=== PATIENT | male | born 1960 | race Caucasian/White ===

== ENCOUNTER 2025-04-19 13:36 | Emergency (ER) | payer MEDICAID, MEDICARE, SELFPAY ==
--- OUTSIDE RECORDS SUMMARY | 2025-04-12 14:30 | XMS_ITS | Encounter Summary ---
Author Organization [facility] Address [address] [place] [address] Care Team Providers Care Basin Cleaner Name Role Phone Pancho Berrios MD Primary Care Provider Encounter Details Date Type Department Care Team (Late st Contact Info) Description 04/12/2025 2:30 PM CDT Telemedicine [facility] [place] - Primary Care [address] [place] [address] Jasmin Mcgovern FNP [address] [place], [place] [id number] [facility] resident (Primary Dx); Cellulitis of right upper extremity; Insect bite of right forearm, initial encounter Social History Tobacco Use Types Packs/Day Years Used Date Smoking Tobacco: Unknown Alcohol Use Standard Drinks/Week Comments Defer 0 (1 standard drink = 0.6 oz pur e alcohol) PHQ-2 Answer Date Recorded PHQ-2 Score 0 09/19/2024 Sex and Gender Information Value Date Recorded Sex Assigned at Not on file Legal Sex Male 6:14 PM TEST LEAD Gender Identity Not on file Sexual Orientation Not on file documented as of this encounter Functional Status * ADL / Functional Screening Question Answer Date of Assessment Author Limitations in ADLs or Functional Status Cooking;Dressing 04/12/2025 3:01 PM CDT Jasmin Mcgovern FNP Physical or Cognitive limitation that affects ADLs Yes-Chronic 04/12/2025 3:01 PM CDT Jasmin Mcgovern FNP documented as of this encounter Progress Notes * ANEL Ruiz - 04/12/2025 2:30 PM CDT The following was shared and approved by the patient or patient's caregiver prior to recording for the note: I will be using an audio recording system to record your appointment today. The recording will thenbe transcribed to create a note that will be saved to your medical record. Do you mind if we recordthis appointment? Sandro Gaming is seen today via Tele health. The patient has consented to this telemedicine visit with face to face capability. The patient has been informed that the visit may not be secure and acknowledges the information. This visit was conducted with the use of interactive audio telecommunication system that permits real-time communication between the patient and provider. After being given the opportunity to ask questions and discuss the type of visit the patient verbally consented to proceeding with telephone/video visit. The patient understands that this service replaces an office visit and they may be billed and/or responsible for any applicable co-pay. Visit completed by telehealth video the patient is located at [facility] and I am located at the clinic. History of Present Illness Sandro Gaming is a 65 year old male who is a resident at [facility]. Patient is evaluated via Telehealth for a sore area on his forearm, suspected to be an insect bite. He noticed a sore area on his forearm yesterday, first observed by an aide. It is tender to touch and warm. He does not recall any insect bite and only noticed the area upon waking. He denies fever but reports feeling hot at times. He spends time outside in a fenced grassy area where he smokes. He has a known allergy to penicillin, which causes throat swelling. He has not been on any recent antibiotics and has no other reported medication allergies. There were no vitals taken for this visit. Physical Exam Constitutional: General: He is not in acute distress. Appearance: Normal appearance. He is not ill-appearing. HENT: Head: Normocephalic and atraumatic. Pulmonary: Effort: Pulmonary effort is normal. No respiratory distress. Musculoskeletal: General: Normal range of motion. Cervical back: Normal range of motion. Skin: General: Skin is warm and dry. Findings: Erythema present. Comments: Suspected insect bite right forearm, surrounding erythema. No purulent discharge observed Neurological: General: No focal deficit present. Mental Status: He is alert and oriented to person, place, and time. Mental status is at baseline. Psychiatric: Mood and Affect: Mood normal. Behavior: Behavior normal. Thought Content: Thought content normal. Judgment: Judgment normal. Assessment & Plan Cellulitis and nonvenomous insect bite of right forearm Suspected cellulitis secondary to minor skin break. Penicillin allergy noted. - Prescribed doxycycline 100 mg BID for 7 days. - Prescribed mupirocin ointment TID to affected area. [facility] resident Patient is a resident at [facility] The primary encounter diagnosis was [facility] resident. Diagnoses of Cellulitis of right upper extremity and Insect bite of right forearm, initial encounter were also pertinent to this visit. Patient was educated on discharge instructions including diagnosis, planning, medication administration, prescriptions, and importance of following up with PCP or return to UC or ER if any worsening or persistence of symptoms. Patient verbalized understanding and is happy with plan of care. Patientwill follow up as discussed and educated. [facility] documentation services were performed after patient gave consent to recording the patient visit. This note was reviewed by the provider prior to final approval. Encounter time of 30 minutes Cosigned by Pancho Berrios MD at 04/13/2025 10:14 AM CDT documented in this encounter Plan of Treatment Upcoming Encounters Date Type Department Care Team (Late st Contact Info) Description 06/20/2025 10:00 AM CDT Office Visit [facility] [address], [address] [place] [place] [address] Nimo Mabry FNP [address] [facility] [place] [address] documented as of this encounter Visit Diagnoses Diagnosis [facility] resident- Primary Cellulitis of right upper extremity Insect bite of right forearm, initial encounter documented in this encounter Additional Health Concerns Assessment Noted Time PHQ-9 Depression Total Score: 0 09/19/19 25 1:02 PM TEST LEAD A fall risk assessment has been complete d for the patient 04/12/2025 3:01 PM CDT documented as of this encounter Care Teams Basin Cleaner Relationship Specialty Start Date End Date Pancho Berrios MD [address] [place] [address] PCP - General Family Medicine 07/29/22 documented as of this encounter
--- OUTSIDE RECORDS SUMMARY | 2025-04-19 14:03 | XMS_ITS | Encounter Summary ---
Author Organization [facility] Address [address] [place] [address] Care Team Providers Care Core Cutter Name Role Phone Pancho Berrios MD Primary Care Provider Encounter Details Date Type Department Care Team (Late Contact Info) Description 04/18/2025 Orders Only [facility] - Primary Care [address] [place] [address] Ema Mckeon LPN Social History Tobacco Use Types Packs/Day Years Used Date Smoking Tobacco: Unknown Alcohol Use Standard Drinks/Week Comments Defer 0 (1 standard drink = 0.6 oz pur e alcohol) PHQ-2 Answer Date Recorded PHQ-2 Score 0 09/19/2024 Sex and Gender Information Value Date Recorded Sex Assigned at Not on file Legal Sex Male 6:14 PM NATURAL RESOURCES ENGINEER Gender Identity Not on file Sexual Orientation Not on file documented as of this encounter Plan of Treatment Upcoming Encounters Date Type Department Care Team (Late st Contact Info) Description 06/20/2025 10:00 AM CDT Office Visit [facility] [address], [address] [place] [id number] Nimo Mabry, APPLICATIONS ARCHITECT [address] [place] [id number] documented as of this encounter Visit Diagnoses Not on filedocumented in this encounter Additional Health Concerns Assessment Noted Time PHQ-9 Depression Total Score: 0 09/19/19 25 1:02 PM NATURAL RESOURCES ENGINEER A fall risk assessment has been complete d for the patient 04/17/2025 8:30 AM CDT documented as of this encounter Care Teams Core Cutter Relationship Specialty Start Date End Date Pancho Berrios MD [address] [place] [address] PCP - General Family Medicine 07/29/22 documented as of this encounter
--- OUTSIDE RECORDS SUMMARY | 2025-04-19 14:03 | XMS_ITS | Encounter Summary ---
Author Organization [facility] Address [address] [place] [address] Care Team Providers Care Decorator Lighting Fixtures Name Role Phone Pancho Berrios MD Primary Care Provider Encounter Details Date Type Department Care Team (Latest Contact Info) Description 04/12/2025 Travel Social History Tobacco Use Types Packs/Day Years Used Date Smoking Tobacco: Unknown Alcohol Use Standard Drinks/Week Comments Defer 0 (1 standard drink = 0.6 oz pur e alcohol) PHQ-2 Answer Date Recorded PHQ-2 Score 0 09/19/2024 Sex and Gender Information Value Date Recorded Sex Assigned at Not on file Legal Sex Male 6:14 PM CLAMSHELL OPERATOR Gender Identity Not on file Sexual Orientation Not on file documented as of this encounter Functional Status * ADL / Functional Screening Question Answer Date of Assessment Author Limitations in ADLs or Functional Status Cooking;Dressing 04/12/2025 3:01 PM CDT Jasmin Mcgovern FNP Physical or Cognitive limitation that affects ADLs Yes-Chronic 04/12/2025 3:01 PM CDT Jasmin Mcgovern FNP documented as of this encounter Plan of Treatment Upcoming Encounters Date Type Department Care Team (Late st Contact Info) Description 06/20/2025 10:00 AM CDT Office Visit [facility] [address], [address] [place] [address] Nimo Mabry FNP [address] [place] [address] documented as of this encounter Visit Diagnoses Not on filedocumented in this encounter Additional Health Concerns Assessment Noted Time PHQ-9 Depression Total Score: 0 09/19/19 25 1:02 PM CLAMSHELL OPERATOR A fall risk assessment has been complete d for the patient 04/12/2025 3:01 PM CDT documented as of this encounter Care Teams Decorator Lighting Fixtures Relationship Specialty Start Date End Date Pancho Berrios MD [address] [place] [address] PCP - General Family Medicine 07/29/22 documented as of this encounter
--- OUTSIDE RECORDS SUMMARY | 2025-04-19 14:03 | XMS_ITS | Clinical Summary ---
Author Organization [facility] Address [address] [place] [address] Care Team Providers Care Note Keeper Name Role Phone Pancho Berrios MD Primary Care Provider Allergies Active Allergy Reactions Criticality Noted Date Comments Penicillin Unknown 08/06/2022 Sulfa (Sulfonamide Antibiotics) Unknown 02/2022 Sulfacetamide Unknown 08/06/2022 Medications fluticasone propionate (FLONASE) 50 mcg/actuation nasal spray Administer 1 spray into each nostril in the morning. Active Active Problems Problem Noted Date Diagnosed Date Insomnia 06/24/2024 Chronic bilateral low back pain without sciatica 09/08/2022 Delusional disorders 08/01/2022 Dementia with behavioral disturbance 08/01/2022 Other frontotemporal neurocognitive disorder (CO DE) 08/01/2022 Obstructive sleep apnea 08/01/2022 Primary hypertension 08/01/2022 Chronic allergic rhinitis 08/01/2022 COPD, mild 08/01/2022 Gastroesophageal reflux disease without esophagi tis 08/01/2022 Chronic constipation 08/01/2022 Arthritis 08/01/2022 Resolved Problems Problem Noted Date Diagnosed Date Resolved Date Pneumonia 08/01/2022 09/08/2022 Encounters Date Type Department Care Team Description 04/18/2025 Orders Only [facility] [place] - Primary Care [address] [facility] [place] [address] Ema Mckeon LPN 04/12/2025 2:30 PM CDT Telemedicine [facility] [place] - Primary Care [address] [place] [address] Jasmin Mcgovern FNP skilled nursing resident (Primary Dx); Cellulitis of right upper extremity; Insect bite of right forearm, initial encounter 04/12/2025 Travel 02/03/2025 10:15 AM CDT Office Visit [facility] - Primary Care [address] [place] [address] Leilani Smart PA Encounter for Medicare annual wellness exam (Primary Dx) 02/02/2025 Travel from Last 3 Months Social History Tobacco Use Types Packs/Day Years Used Date Smoking Tobacco: Unknown Tobacco Cessation:Counseling Given: Not Answered Alcohol Use Standard Drinks/Week Comments Defer 0 (1 standard drink = 0.6 oz pur e alcohol) PHQ-2 Answer Date Recorded PHQ-2 Score 0 09/19/2024 Sex and Gender Information Value Date Recorded Sex Assigned at Not on file Legal Sex Male 6:14 PM WASH OIL PUMP OPERATOR Gender Identity Not on file Sexual Orientation Not on file Last Filed Vital Signs Vital Sign Reading Time Taken Comments Blood Pressure 110/62 04/17/2025 8:28 AM CDT Pulse 68 04/17/2025 8:28 AM CDT Temperature 36.3 C (97.4 F) 04/17/2025 8:28 AM CDT Respiratory Rate 16 04/17/2025 8:28 AM CDT Oxygen Saturation 98% 04/17/2025 8:28 AM CDT Inhaled Oxygen Concentration - - Weight 112 kg (247 lb 12.8 oz) 04/17/2025 8:28 A M CDT Height 182.9 cm (6') 03/13/2025 8:15 AM CDT Body Mass Index 33.61 03/13/2025 8:15 AM CDT Plan of Treatment Upcoming Encounters Date Type Department Care Team (Late st Contact Info) Description 06/20/2025 10:00 AM CDT Office Visit [facility] [address] [place] [address] Nimo Mabry FNP [address] [facility] [place] [address] Health Maintenance Due Date Last Done Comments Pneumococcal Vaccine: 50+ Years (1 of 2 - PCV) 1981 Td, Tdap Vaccines Adult 1981 Colonoscopy 2007 Shingrix (ZOSTER RECOMBINANT) (1 of 2) 01/31/2012 RSV 60+ (1 - Risk 60-74 years 1-dose series) 2022 COVID-19 Vaccine (2023- season) 2024 09/25/2023, 04/09/2023, 08/29/2022, Additional history exists Influenza Vaccination (#1) 2025 Medicare Annual Wellness 02/03/2026 025, 02/03/2025, 11/20/2023 HIB Vaccines Aged Out No longer eligi ble based on patient's age to complete this topic HPV Vaccines Aged Out No longer eligi ble based on patient's age to complete this topic Hepatitis A Vaccines Aged Out No long er eligible based on patient's age to complete this topic Hepatitis B Vaccines Aged Out No long er eligible based on patient's age to complete this topic IPV Vaccines Aged Out No longer eligi ble based on patient's age to complete this topic Meningococcal Vaccines Aged Out No lo nger eligible based on patient's age to complete this topic RSV Mab Nirsevimab (Beyfortus) <20 months Aged Out No longer eligibl e based on patient's age to complete this topic Rotavirus Vaccines Aged Out No longer eligible based on patient's age to complete this topic Insurance [place]ARE [place] [employer] Advance Directives Documents on File Type Date Recorded Patient Purchasing Manager/Sales Expl anation Durable Power of Diploma Dental Assistant 02/09/2024 3:34 PM Durable Power of Diploma Dental Assistant Care Teams Note Keeper Relationship Specialty Start Date End Date Pancho Berrios MD [address] [place] [address] PCP - General Family Medicine 07/29/22
[2025-04-19 14:20] VITALS: BP 125/69; PULSE 91; RESP 18; O2SAT 97
[2025-04-19 15:22] VITALS: BP 151/83; PULSE 78; RESP 16; O2SAT 95
--- NOTE | 2025-04-19 15:24 | CTR_ITS ---
PROCEDURE INFORMATION: Exam: CT Head Without Contrast Exam date and time: 04/19/2025 3:54 PM Age: 65 years old Clinical indication: Visual disturbance; Additional info: Vision loss TECHNIQUE: Imaging protocol: Computed tomography of the head without contrast. Radiation optimization: All CT scans at this facility use at least one of these dose optimization techniques: automated exposure control; mA and/or kV adjustment per patient size (includes targeted exams where dose is matched to clinical indication); or iterative reconstruction. COMPARISON: No relevant prior studies available. RADIATION DOSE METRICS: Total DLP (mGy-cm): 1117.98 FINDINGS: Brain: No acute intracranial hemorrhage. No confluent lobar infarct. No mass effect. Cerebral ventricles: The ventricles and sulci are normal in size and shape for the patient's stated age. Paranasal sinuses: No fluid levels. Mastoid air cells: Visualized mastoid air cells are well aerated. Bones: No acute calvarial fracture. Soft tissues: Visualized soft tissues are unremarkable. CT/CT head wo con* [id number] IMPRESSION: No acute intracranial abnormality. If symptoms persist, consider further evaluation with MRI, if there are no contraindications to obtaining a MRI scan.
--- NOTE | 2025-04-19 15:24 | XR_ITS ---
WS: [id number] Portable AP upright chest, 04/19/2025 Clinical Data: cp Comparison: None. Findings: No nodules, masses or effusions are seen. The heart is normal. The pulmonary vascularity is not increased. No pneumonia or pneumothorax is seen. The diaphragms are flattened. XR/XR chest 1V portable [id number] Impression: Hyperinflation.
--- NOTE | 2025-04-19 15:29 | W.ED.EYEPROB ---
HPI - Eye Problem General: Chief complaint: Eye Problems Stated complaint: Blurry Eye Time Seen by Provider: 04/19/25 15:15 Source: patient and EMS Mode of arrival: EMS Limitations: no limitations History of Present Illness: 65-year-old male who states he has been having blurred vision to his right eye. Patient states he is not sure how long it has been going on did not notice it until he saw his education administrator. He is able to see my fingers here but states it is feels like it is blurry. He denies any slurred speech denies any headache denies any worse improving factors states has had some intermittent chest pains but denies any chest pain today Related Data Home Medications ?Medication ?Instructions ?Recorded ?Confirmed acetaminophen 325 mg tablet 650 mg PO BID Pain/elevated temp 04/19/25 04/19/25 aluminum-mag hydroxide-simethicone 15 ml PO Q8H PRN upset 04/19/25 04/19/25 200 mg-200 mg-20 mg/5 mL oral susp stomach/indigestion (Allyson-Lanta) carbamide peroxide 6.5 % ear drops 5 drp otic (ear) BID 04/19/25 04/19/25 (Debrox) cetirizine 10 mg tablet (Zyrtec) 10 mg PO DAILY PRN allergies 04/19/25 04/19/25 dextran 70-hypromellose eye drops 1 drp ophthalmic (eye) TID 04/19/25 04/19/25 in a dropperette (Artificial Tears (PF) drops in a dropperette) doxycycline hyclate 100 mg tablet 100 mg PO BID 04/19/25 04/19/25 escitalopram oxalate 20 mg tablet 20 mg PO QAM 04/19/25 04/19/25 fluticasone propionate 50 2 spray intranasal DAILY PRN 04/19/25 04/19/25 mcg/actuation nasal allergies spray,suspension guaifenesin 100 mg/5 mL oral 200 mg PO Q6H PRN Cough 04/19/25 04/19/25 liquid (Allyson-Tussin) lorazepam 0.5 mg tablet 0.5 mg PO BID 04/19/25 04/19/25 melatonin 5 mg tablet 5 mg PO BEDTIME 04/19/25 04/19/25 meloxicam 7.5 mg tablet 7.5 mg PO QAM 04/19/25 04/19/25 mirtazapine 15 mg tablet 15 mg PO BEDTIME 04/19/25 04/19/25 mupirocin 2 % topical ointment 1 applic topical BID PRN skin 04/19/25 04/19/25 irritation naloxone 1 mg/mL injection syringe 1 mg IM Q2M PRN Opioid Overdose 04/19/25 04/19/25 Previous Rx's ?Medication ?Instructions ?Recorded aspirin 81 mg capsule 81 mg PO DAILY #30 caps 04/19/25 atorvastatin 80 mg tablet (Lipitor) 80 mg PO DAILY #30 tabs 04/19/25 Allergies Allergy/AdvReac Type Severity Reaction Status Date / Time Penicillins Allergy Unknown Unknown Verified 04/19/25 14:23 Course Vital Signs: Vital signs: Vital Signs Pulse Rate 78 04/19/25 15:22 Respiratory Rate 16 04/19/25 15:22 Blood Pressure 151/83 04/19/25 15:22 Pulse Oximetry 95 04/19/25 15:22 Oxygen Delivery Me thod Room Air 04/19/25 15:22 MDM - Eye Problem Medical Decision Making Patient presents here with vision loss to his right eye unsure how long it has been going on patient does have some vision but it is blurred no other neurologic deficits here head CT is normal we will start him on aspirin statin and have him follow-up with a neurologist Medical Records I reviewed the patient's medical records. Lab Data I reviewed the patient's lab results. 04/19/25 16:16 04/19/25 16:16 Radiology Impressions Chest X-Ray 04/19/25 15:24 Impression: Hyperinflation. Head CT 04/19/25 15:24 IMPRESSION: No acute intracranial abnormality. If symptoms persist, consider further evaluation with MRI, if there are no contraindications to obtaining a MRI scan. Laboratory Results WBC 9.11 10^3/uL (3.29-11.43) 04/19/25 16:16 RBC 4.75 10^6/uL (3.85-5.65) 04/19/25 16:16 Hgb 13.80 g/dL (11.27-16.99) 04/19/25 16:16 Hct 42.2 % (37-53) 04/19/25 16:16 MCV 88.8 fl (82-101) 04/19/25 16:16 MCH 29.1 pg (27-33) 04/19/25 16:16 MCHC 32.7 g/dL (30-55) 04/19/25 16:16 RDW 13.4 % (12.1-15.1) 04/19/25 16:16 Plt Count 257 10^3/cmm (157-399) 04/19/25 16:16 MPV 8.8 fL (7.4-10.4) 04/19/25 16:16 Neut % (Auto) 58.7 % 04/19/25 16:16 Lymph % (Auto) 29.7 % 04/19/25 16:16 [place] % (Auto) 7.9 % 04/19/25 16:16 Eos % (Auto) 2.7 % 04/19/25 16:16 Baso % (Auto) 0.8 % 04/19/25 16:16 Neut # (Auto) 5.34 10^3/uL (1.8-7.7) 04/19/25 16:16 Lymph # (Auto) 2.7 10^3/uL (0.8-4.8) 04/19/25 16:16 [place] # (Auto) 0.7 10^3/uL (0.2-0.9) 04/19/25 16:16 Eos # (Auto) 0.3 10^3/uL (0.0-0.8) 04/19/25 16:16 Baso # (Auto) 0.1 10^3/uL (0.0-0.1) 04/19/25 16:16 Nucleated RBC % (auto) 0 % 04/19/25 16:16 Nucleated RBCs # 0.0 /100WBC 04/19/25 16:16 Sodium 137 mmol/L (136-145) 04/19/25 16:16 Potassium 4.2 mmol/L (3.5-5.1) 04/19/25 16:16 Chloride 102 mmol/L (98-107) 04/19/25 16:16 Carbon Dioxide 24 mmol/L (22-29) 04/19/25 16:16 Anion Gap 15.2 (5-19) 04/19/25 16:16 BUN 8 mg/dL (8-23) 04/19/25 16:16 Creatinine 0.7 mg/dL (0.7-1.2) 04/19/25 16:16 GFR Calculation 113.9 mL/min (90-130) 04/19/25 16:16 Glucose 140 mg/dL (65-115) H 04/19/25 16:16 Calculated Osmolality 285 mOsm/kg (285-295) 04/19/25 16:16 Calcium 9.0 mg/dL (8.5-10.5) 04/19/25 16:16 Total Bilirubin 0.2 mg/dL (0.15-1.2) 04/19/25 16:16 AST 20 U/L (0-40) 04/19/25 16:16 ALT 18 U/L (0-41) 04/19/25 16:16 Alkaline Phosphatase 79 U/L (40-130) 04/19/25 16:16 Total Protein 7.3 g/dL (6.6-8.7) 04/19/25 16:16 Albumin 4.1 g/dL (3.5-5.2) 04/19/25 16:16 Globulin 3.2 g/dL (1.3-4.6) 04/19/25 16:16 Lipase 17 U/L (13-60) 04/19/25 16:16 All radiology interpretation(s) finalized by discharge EKG Data EKG 1: I personally reviewed and interpreted this EKG as follows: EKG interpretation date: 04/19/25 EKG interpretation time: 15:44 Interpretation: nsr hr [address] elevation qrs 97 qtc 400 Discharge Plan Discharge Patient Disposition: Home Clinical Impression: Vision loss, right eye Condition: Stable Prescriptions: New aspirin 81 mg capsule 81 mg PO DAILY Qty: 30 0RF atorvastatin [Lipitor] 80 mg tablet 80 mg PO DAILY Qty: 30 0RF No Action acetaminophen 325 mg Tablet 650 mg PO BID cetirizine [Zyrtec] 10 mg Tablet 10 mg PO DAILY PRN (Reason: allergies) guaifenesin [Allyson-Tussin] 100 mg/5 mL Liquid 200 mg PO Q6H PRN (Reason: Cough) meloxicam 7.5 mg tablet 7.5 mg PO QAM lorazepam 0.5 mg tablet 0.5 mg PO BID Debrox 6.5 % Drops 5 drp OTIC (EAR) BID mupirocin 2 % ointment 1 applic TOPICAL BID PRN (Reason: skin irritation) mirtazapine 15 mg tablet 15 mg PO BEDTIME alum-mag hydroxide-simeth [Allyson-Lanta] 200-200-20 mg/5 mL Suspension 15 ml PO Q8H PRN (Reason: upset stomach/indigestion) Rx Instructions: administer between meals and at bedtime fluticasone propionate [Flonase] 50 mcg/actuation [place],Suspension 2 spray INTRANASAL DAILY PRN (Reason: allergies) Rx Instructions: administer into each nostril doxycycline hyclate 100 mg tablet 100 mg PO BID naloxone [Narcan] 1 mg/mL Syringe 1 mg IM Q2M PRN (Reason: Opioid Overdose) Rx Instructions: NTExceed 10 mg total dose/episode escitalopram oxalate 20 mg tablet 20 mg PO QAM Artificial Tears (PF) Dropperette 1 drp OPHTHALMIC (EYE) TID melatonin 5 mg Tablet 5 mg PO BEDTIME Discharge Orders: Discharge ED (Routine); Ordered 04/19/25 Ordered By: Carolyn Leon Referrals: Daysi Carmona MD [Physician, Neurology] - 4-7 days Discharge Diet: Advance as tolerated Discharge Activity: Resume usual activity Patient Instructions: Vision Problems Print Language: Occitan Coding Level of Care Code ED Spice Room Worker for Evin Raman NIH stroke score NIHSS Level Of Consciousness - 1a: 0 Level Of Consciousness Questions - 1b: Both Correct Level Of Consciousness Commands - 1c: Both Correct Best Gaze - 2: Normal Visual Meeks - 3: No Visual Loss Facial Palsy - 4: Normal Motor Arm Right - 5: No Drift Motor Arm Left - 5: No Drift Motor Leg Right - 6: No Drift Motor Leg Left - 6: No Drift Limb Ataxia - 7: Absent Sensory - 8: Normal Best Language - 9: No Aphasia Dysarthia - 10: Normal Extinction And Inattention - 11: 0 Score Total Score: 0
--- NOTE | 2025-04-19 15:39 | PC.NURSE ---
VISUAL ACUITY R: N/A L: 20/25 BILATERAL: 20/25
--- NOTE | 2025-04-19 15:44 | ECG_ITS ---
[facility] Test Date: 2025-04-19 Pat Name: Sandro Gaming Department: Room: Gender: Male Complaint Manager: : 1960 Requested By: Carolyn Leon Order Number: [id number] Franklin MD: Gerald Syed M.D. Measurements Intervals [place] Rate: 71 P: 40 NH: 160 QRS: 58 QRSD: 97 T: 49 QT: 377 QTc: 412 Interpretive Statements SINUS RHYTHM No previous ECG available for comparison Electronically Signed On 04-22-2025 08:51:54 CDT by Gerald Syed M.D. [email or web address]
--- NOTE | 2025-04-19 15:47 | PC.PHAR ---
Pt is resident at [facility]
[2025-04-19] MEDS: tetracaine 0.5% Op Soln 4 mL Btl 1 DROP EYE-RIGHT (16:30)
[2025-04-19 16:39] LABS: Hematocrit 42.2 % (37-53); Hemoglobin 13.80 g/dL (11.27-16.99); Mean Corpuscular HGB Conc 32.7 g/dL (30-55); Mean Corpuscular Hemoglobin 29.1 pg (27-33); Mean Corpuscular Volume 88.8 fl (82-101); Nucleated Red Blood Cells % 0 %; Platelet Count 257 10^3/cmm (157-399); Red Blood Count 4.75 10^6/uL (3.85-5.65); White Blood Count 9.11 10^3/uL (3.29-11.43)
[2025-04-19 16:51] LABS: Alanine Aminotransferase 18 U/L (0-41); Albumin Level 4.1 g/dL (3.5-5.2); Alkaline Phosphatase 79 U/L (40-130); Anion Gap 15.2 (5-19); Aspartate Amino Transferase 20 U/L (0-40); Blood Urea Nitrogen 8 mg/dL (8-23); Calcium 9.0 mg/dL (8.5-10.5); Carbon Dioxide 24 mmol/L (22-29); Chloride 102 mmol/L (98-107); Globulin 3.2 g/dL (1.3-4.6); Glucose 140 mg/dL (65-115); Lipase 17 U/L (13-60); Osmolality Calculated 285 mOsm/kg (285-295); Potassium 4.2 mmol/L (3.5-5.1); Sodium 137 mmol/L (136-145); Total Protein 7.3 g/dL (6.6-8.7)
[2025-04-19 18:24] VITALS: BP 140/73; PULSE 74; RESP 16; O2SAT 96
--- NOTE | 2025-04-20 09:50 | DCPLANNER ---
messaged neuro for er f/u
== END 2025-04-19 18:27 | disposition home or self-care (01) ==
PROVIDERS: Emergency Provider Emergency Medicine
DX: H54.61 Unqualified visual loss, right eye, normal vision left eye (principal)
CPT/HCPCS: 36415; 70450; 71045; 80053; 83690; 85025; 93005; 99285; J9999

== ENCOUNTER 2025-08-09 08:06 | Outpatient (CLI) | payer MEDICARE, MEDICAID, SELFPAY ==
--- NOTE | 2025-08-09 16:41 | FL_ITS ---
[place] barium swallow [id number] REASON FOR EXAM: DYSPHAGIA/VOICE CHANGE FLUOROSCOPY TIME: 1min [id number] # OF SPOT FILMS: Multiple TECHNIQUE: Patient was examined In the standing upright and lateral projections and in the prone MEYER position. A swallowing of thin barium was monitored fluoroscopically with multiple rapid sequence spot films. The cervical esophagus was normal with no aspiration or laryngeal vestibule penetration by the liquid contrast. The thoracic esophagus demonstrated normal motility and anatomy. FINDINGS: The cervical esophagus was normal with no aspiration or laryngeal vestibule penetration by the liquid contrast. The thoracic esophagus demonstrated normal motility without hiatal hernia or stricture. IMPRESSION: No significant abnormality. In view of the hoarseness without the presence of aspiration, CT of the neck may be considered as clinically warranted. MTDD
== END 2025-08-09 08:07 | disposition home or self-care (01) ==
PROVIDERS: PCP Family Medicine; Visit Provider Nurse Practitioner Family
DX: R13.10 Dysphagia, unspecified (principal); R49.0 Dysphonia
CPT/HCPCS: 74220